=== PATIENT | female | born 1970 | race Caucasian/White ===

== ENCOUNTER 2017-11-02 10:30 | Emergency (ER) | payer MEDICARE, MEDICAID, SELFPAY ==
[2017-11-02 10:31] VITALS: BP 159/91; PULSE 79; RESP 16; TEMP 36.5; O2SAT 99; BMI 45.1
--- NOTE | 2017-11-02 10:57 | ED.DCSUM_ITS ---
- ER Visit Summary Date of Service: 11/02/17 Chief Complaint: Cough and shortness of breath History of Present Illness: The patient is a [address] Corbett. She reports that she has a cough began 4 days ago. It is nonproductive. She denies any fever or chills. She reports that she has a history of asthma and has had severe shortness of breath. She reports that this is worsened by coughing or walking. It is relieved transiently and partially by her albuterol nebulizer which she is using a q3. States that she was last on steroids approximately 1 month ago. She denies any chest pain. Physical Examination: Vitals: Stable. Afebrile. General: Well-nourished and well-developed. Head: Normocephalic atraumatic. Neck: Supple, no lymphadenopathy. No JVD. Nontender. Cardiovascular: Regular rate and rhythm. No murmurs. Respiratory: Mild respiratory distress. Wheezing with severely limited air movement bilaterally. Abdominal: Soft, nontender, nondistended, normal bowel sounds. No guarding, rebound, or peritoneal signs. Back: Nontender. Extremities: Nontender, no edema. Skin: Normal color, no rash. Neurologic: Alert and oriented ?3. Cranial nerves II through XII are intact. Normal strength and sensation. Psych: Normal affect. Test Results: Chest x-ray shows no acute disease. CBC is remarkable for eosinophils of 8. BMP is remarkable for a glucose of 107. Emergency Department Course and Treatment: Patient had an IV placed. She was given Solu-Medrol IV. She was treated with albuterol and Atrovent aerosols. She feels much improved and would like to go home. Treatment Plan: Patient will be discharged with instructions to use her albuterol and Atrovent nebulized at home. She be placed on a steroid taper. Instructed to follow-up with her primary care physician in 1-2 days if not improving. Return to the emergency department for any worsening symptoms. Disposition: To home in improved and stable condition. Impression: 1. Asthma exacerbation. 2. URI. This note was generated with [employer] dictation software. It may contain incorrect words, spelling, and punctuation that were not noted in review of the chart prior to signing ED Disposition - Plan for ED Patient: Chief Complaint: Shortness of Breath Instructions: ED Bronchitis Asthmatic Prescriptions: Prednisone 10 mg PO DAILY #63 tablet Referrals: Aditi Corbett MD [Primary Care Provider] - 1-2 Days if not improving
[2017-11-02 11:00] VITALS: PULSE 91; RESP 48
[2017-11-02] MEDS: Albuterol 2.5 MG/3 ML VIAL.NEB. INHALATION ×2 (11:00)
[2017-11-02] MEDS: Ipratropium/Albuterol Sulfate 3 ML AMPUL.NEB INHALATION (11:00)
[2017-11-02 11:07] VITALS: O2SAT 99
[2017-11-02 11:19] LABS: Absolute Lymphocyte Count 1.65 X10^3/ul (0.83-4.51); Absolute Neutrophil Count 2.8 X10^3/uL (2.0-7.7); Basophil# 0.04 X10^3/uL; Basophil% 0.8 % (0-1); Eosinophil# 0.41 X10^3/uL; Eosinophils% 7.8 % (0-5); Hematocrit 38.5 % (37-47); Hemoglobin 13.2 g/dl (12.0-15.0); Lymphocyte # 1.65 X10^3/ul (4.0); Lymphocyte % 31.3 % (19-41); Mean Corp Hgb Conc 34.3 g/gl (32-36); Mean Corpuscular Hgb 30.3 pg (27.0-32.0); Mean Corpuscular Volume 88.3 fL (81-99); Mean Platelet Vol. 8.7 fl (6.2-12.0); Monocyte# 0.39 X10^3/uL; Monocyte% 7.4 % (0-10); Neutrophil # 2.78 X10^3/uL (2.7-7.7); Neutrophil % 52.5 % (47-70); POSITIVE COUNT NO; POSITIVE DIFFERENTIAL NO; POSITIVE MORPHOLOGY NO; Platelet Count 274 K/mm3 (150-450); RBC Distribution Width CV 13.1 % (11.6-14.6); Red Blood Count 4.36 M/mm3 (4.2-5.4); White Blood Count 5.3 K/mm3 (4.4-11.0)
[2017-11-02] MEDS: MethylPREDNISolone 125 MG/2 ML Vial IV (11:23)
[2017-11-02] MEDS: 0.9% Normal Saline 1,000 ML 999 ML IV (11:23)
--- NOTE | 2017-11-02 11:25 | RAD_ITS ---
STUDY: X-RAY CHEST REASON FOR EXAM: Female, 47 years old. Shortness of breath for 4 days. TECHNIQUE: PA and lateral views of the chest. COMPARISON: Prior comparable comparison studies are not available for review at this time. FINDINGS: Cardiac monitoring leads are present. Lungs are expanded. There is mild interstitial thickening visible in both lungs. There is no demonstrated pleural abnormality. Normal size heart. Normal mediastinum and lexy. Normal visualized pulmonary arteries. There is atherosclerotic tortuosity of the aortic arch and descending thoracic aorta. There is demineralization of the osseous structures. Normal visualized ribs, clavicles, and shoulders. There is no demonstrated abnormality of the visualized soft tissue structures of the upper abdomen. RAD/Chest PA and Lateral IMPRESSION: No radiographic evidence of acute cardiopulmonary disease. Electronically Signed: Diana Khan MD at 12:06 EST , Service support ,
[2017-11-02 11:30] LABS: Anion Gap 9 (5-15); BUN 15 mg/dL (7-18); BUN/Creat Ratio 19.9 RATIO (10-20); Calcium,Total 9.5 mg/dL (8.5-10.1); Chloride 107 mmol/L (98-107); Creatinine, Serum 0.76 mg/dL (0.55-1.02); EST Glomerular Filtration Rate 87 mL/min (>60); Est Glom Filt Rate - Afr Amer 105 mL/min (>60); Estimated Creatinine Clearance 78.17 ml/min; Glucose 107 mg/dL (74-106); Potassium 3.9 mmol/L (3.5-5.1); Sodium Level 142 mmol/L (136-145)
[2017-11-02 12:43] VITALS: BP 157/80; PULSE 98; RESP 20; O2SAT 99
== END 2017-11-02 12:44 | disposition home or self-care (01) ==
PROVIDERS: Emergency Provider Emergency Medicine; Family Provider Internal Medicine; PCP Internal Medicine
DX: J45.901 Unspecified asthma with (acute) exacerbation (principal); J06.9 Acute upper respiratory infection, unspecified; I10 Essential (primary) hypertension; M79.7 Fibromyalgia; Z87.19 Personal history of other diseases of the digestive system; Z90.49 Acquired absence of other specified parts of digestive tract; Z90.710 Acquired absence of both cervix and uterus; Z79.899 Other long term (current) drug therapy
CPT/HCPCS: 71046; 80048; 85025; 94640; 96361; 96374; 99284; J7030; A4216

== ENCOUNTER 2017-11-28 15:00 | Outpatient (RCR) | payer MEDICARE, MEDICAID, SELFPAY ==
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
--- NOTE | 2018-03-17 14:08 | HP.PT.NRP ---
HP - Discharge Summary (1) - Patient Information MIKA VELAZQUEZ was seen in my office for initial evaluation on 11/24/17. The following Plan of Care was established for this patient: Initial Frequency: 2-3x /Week Initial Duration: 4-6 Weeks - Anticipated Interventions Patient/Client Instruction: Educate patient on: Condition, Plan of Care, Risk Factors, Benefits of Fitness Program For the Purpose of:: To improve self management Therapeutic Exercise to Include: Strength training, Body mechanics, Postural training, Flexibilty training, In an aquatic setting, Active ROM, Dynamic Lumbar Stabilization, Scapular Strength/Stabilization For the Purpose of:: To decrease pain, To increase ROM, To improve muscle performance and motor function, To improve ability to perform ADL's, To increase tolerance to activity/condition/position, To improve ability of physical actions for home/community/work/leisure This patient was last seen in our office 11/28/17. Pertinent comments regarding their Physical therapy will appear below: This patient has not returned to Physical Therapy and is appropriate to return to MD for further follow-up as needed. At this point I will be discontinuing this patient from physical therapy. I would be happy to see this patient again in the future if found appropriate by the physician. Thank you! Tania Mullen
== END 2017-11-28 19:00 | disposition home or self-care (01) ==
LOC: PT 15:00
PROVIDERS: Family Provider Internal Medicine; PCP Internal Medicine; Visit Provider Internal Medicine
DX: M54.14 Radiculopathy, thoracic region (principal); M50.30 Other cervical disc degeneration, unspecified cervical region
CPT/HCPCS: 97113; 97162

== ENCOUNTER 2018-02-04 16:21 | Emergency (ER) | payer MEDICARE, MEDICAID, SELFPAY ==
[2018-02-04 16:24] VITALS: BP 177/94; PULSE 79; RESP 16; TEMP 36.6; O2SAT 99; BMI 45.9
--- NOTE | 2018-02-04 17:08 | ED.DCSUM_ITS ---
- ER Visit Summary Date of Service: 02/04/18 Chief Complaint: Rash History of Present Illness: The patient is a [address] Corbett. She reports that 3 days ago she was out working in the yard and they are where a bunch of horse flies around. She worked in bushes that had spiders. She denies any exposure to poison theron. She reports that night she developed a rash to her right leg that itches and rodriguez. She was seen at the walk-in clinic yesterday and placed on doxycycline. She outlined the areas and it seems to have expanded so she is coming emergency department for evaluation today. Physical Examination: Vitals: Stable. Afebrile. General: Well-nourished and well-developed. Head: Normocephalic atraumatic. Neck: Supple, no lymphadenopathy. No JVD. Nontender. Cardiovascular: Regular rate and rhythm. No murmurs. Respiratory: No respiratory distress. Clear to auscultation bilaterally. Abdominal: Soft, nontender, nondistended, normal bowel sounds. No guarding, rebound, or peritoneal signs. Back: Nontender. Extremities: Nontender, no edema. Skin: 3 separate areas of erythema. One is on the distal thigh medially. One is on the anterior mid leg. One is on the medial side of her distal left leg. There is no induration or fluctuance. There is no vesicles.. Neurologic: Alert and oriented ?3. Cranial nerves II through XII are intact. Normal strength and sensation. Psych: Normal affect. Emergency Department Course and Treatment: I had a discussion the patient had a my opinion this is a localized allergic reaction from either a insect bite or something that she came into contact with. She is quite certain that this is cellulitis. Treatment Plan: Patient be discharged instructions to continue her doxycycline. However, for the itching she will be placed on Zyrtec and triamcinolone ointment. Follow-up with her primary care physician in 2 days for a wound check. Disposition: To home in improved and stable condition. Impression: 1. Contact dermatitis left leg. This note was generated with [employer] dictation software. It may contain incorrect words, spelling, and punctuation that were not noted in review of the chart prior to signing ED Disposition - Plan for ED Patient: Disposition: Home or Assisted Living Chief Complaint: Cellulitis Instructions: ED Dermatitis Contact Prescriptions: Cetirizine HCl [Zyrtec] 10 mg PO DAILY #14 tablet Triamcinolone 0.5% Cream [Kenalog] 1 applic TOPICAL BID #1 tube Referrals: Aditi Corbett MD [Primary Care Provider] - 2 Days for wound check
== END 2018-02-04 17:24 | disposition home or self-care (01) ==
LOC: ED 17:19
PROVIDERS: Emergency Provider Emergency Medicine; Family Provider Internal Medicine; PCP Internal Medicine
DX: L23.9 Allergic contact dermatitis, unspecified cause (principal); J45.909 Unspecified asthma, uncomplicated; M79.7 Fibromyalgia; Z79.899 Other long term (current) drug therapy
CPT/HCPCS: 99282

== ENCOUNTER → 2018-04-02 13:36 | Outpatient (CLI) | payer MEDICARE, MEDICAID, SELFPAY ==
[2018-04-02 17:54] LABS: Estradiol < 11.0 pg/mL; Follicle Stimulating Hormone 52.3 mIU/mL
== END ==
PROVIDERS: Family Provider Internal Medicine; PCP Internal Medicine; Visit Provider Obstetrics & Gynecology
DX: N99.83 Residual ovary syndrome (principal)
CPT/HCPCS: 36415; 82670; 83001

== ENCOUNTER → 2018-11-11 15:30 | Outpatient (CLI) | payer MEDICARE, MEDICAID, SELFPAY ==
[2018-04-02 13:00] VITALS: BMI 45.2
== END ==
PROVIDERS: Family Provider Internal Medicine; PCP Internal Medicine; Referring Provider Otolaryngology Otolaryngology/Facial Plastic Surgery; Visit Provider Otolaryngology Otolaryngology/Facial Plastic Surgery
DX: J32.9 Chronic sinusitis, unspecified (principal)
CPT/HCPCS: 87070; 87205

== ENCOUNTER 2019-01-12 00:12 | Emergency (ER) | payer MEDICARE, MEDICAID, SELFPAY ==
[2019-01-12 00:12] VITALS: BP 162/94; PULSE 89; RESP 16; TEMP 36.6; O2SAT 97; BMI 46.7
--- NOTE | 2019-01-12 00:51 | ED.VISSUMM ---
- ER Visit Summary Date of Service: 01/12/19 Chief Complaint: Poison tenisha History of Present Illness: The patient is a 48 F with a rash from poison tenisha for the past 1 week. She was recently started on a prednisone taper. She noted the rash seemed to worsen after going from 40 mg down to 20 mg. She has been on cycles of prednisone as well as a Medrol Dosepak over the past couple of months for asthma. She is also currently taking Benadryl. Physical Examination: Blood pressure is 162/94, otherwise vitals normal. Patient sitting upright in bed no acute distress. Heart is regular rate and rhythm. Lung sounds are clear. Skin examination reveals patches of erythema to the bilateral arms into her right thigh consistent with contact dermatitis. There is no sign of secondary infection at this time. Test Results: [] Emergency Department Course and Treatment: I discussed with patient that exam findings are consistent with contact dermatitis from poison tenisha. We will give her 60 mg of prednisone now and start her on a slow taper. She will also be given Pepcid and will take this in addition to Benadryl. I also recommended trying oatmeal baths or using the powder from the stomach a paste to apply to the areas. Treatment Plan: Patient is to return for worsening symptoms or other concerns. Disposition: Discharge Impression: Contact dermatitis This note was generated with [employer] dictation software. It may contain incorrect words, spelling, and punctuation that were not noted in review of the chart prior to signing ED Disposition - Plan for ED Patient: Disposition: Home or Assisted Living Instructions: ED Dermatitis Poison Tenisha Prescriptions: Famotidine [Pepcid] 40 mg PO DAILY #28 tablet Prednisone 10 mg PO DAILY #63 tablet Referrals: Aditi Corbett MD [Primary Care Provider] - 1 Week
[2019-01-12 00:55] VITALS: BP 158/89; PULSE 92; RESP 18; O2SAT 98
[2019-01-12] MEDS: predniSONE 20 MG Tablet 60 MG PO (01:10)
[2019-01-12] MEDS: Famotidine 20 MG Tablet 40 MG PO (01:10)
== END 2019-01-12 01:14 | disposition home or self-care (01) ==
PROVIDERS: Emergency Provider Emergency Medicine; Family Provider Internal Medicine; PCP Internal Medicine
DX: L23.7 Allergic contact dermatitis due to plants, except food (principal); J45.909 Unspecified asthma, uncomplicated; I10 Essential (primary) hypertension; M79.7 Fibromyalgia; F32.9 Major depressive disorder, single episode, unspecified; G47.33 Obstructive sleep apnea (adult) (pediatric); Z79.52 Long term (current) use of systemic steroids; Z79.51 Long term (current) use of inhaled steroids; Z79.899 Other long term (current) drug therapy
CPT/HCPCS: 99283

== ENCOUNTER → 2019-02-15 | Outpatient (CLI) | payer MEDICARE, MEDICAID, SELFPAY ==
--- NOTE | 2019-02-15 14:15 | CT_ITS ---
STUDY: CT MAXILLOFACIAL SINUSES REASON FOR EXAM: Female, 48 years old. Sinusitis. History of balloon sinus surgery. RADIATION DOSAGE (If Supplied By Facility): CTDIvol = ( 33.45 ) mGy, DLP = ( 793.09 ) mGycm TECHNIQUE: The patient was scanned in a multi detector CT scanner. High resolution axial imaging was performed without the administration of intravenous contrast material. Sagittal and coronal images were reconstructed. Individualized dose optimization techniques were used for this CT. COMPARISON: CT brain dated 08/15/2015. FINDINGS: FRONTAL SINUSES: There are stable non pneumatization of the right frontal sinus. The left frontal sinus is clear. ETHMOIDAL SINUSES: Normal aeration, without mucosal inflammatory disease. MAXILLARY SINUSES: Normal aeration, without mucosal inflammatory disease. SPHENOIDAL SINUSES: Normal aeration, without mucosal inflammatory disease. There is patency of the bilateral maxillary infundibuli with normal uncinate processes, ethmoid bullae, and hiatus semilunaris. Normal bilateral middle turbinates. Normal bilateral inferior turbinates. Normal midline nasal septum. There is patency of the bilateral nasal airways. The visualized osseous structures are normal. The visualized bilateral orbital contents are normal. CT/Sinus/Facial Bone IMPRESSION: Stable non pneumatization of the right frontal sinus. Otherwise, clear sinuses. Electronically Signed: Edenilson Castaneda, at 14:49 EDT Tel , Service support ,
== END | disposition home or self-care (01) ==
LOC: CT 14:13
PROVIDERS: Family Provider Internal Medicine; PCP Internal Medicine; Referring Provider Otolaryngology; Visit Provider Otolaryngology
DX: J32.9 Chronic sinusitis, unspecified (principal)
CPT/HCPCS: 70486

== ENCOUNTER → 2019-03-16 | Outpatient (CLI) | payer MEDICARE, MEDICAID, SELFPAY | END | disposition home or self-care (01) | LOC: LABSPEC 16:18 | PROVIDERS: Family Provider Internal Medicine; PCP Internal Medicine; Referring Provider Otolaryngology Otolaryngology/Facial Plastic Surgery; Visit Provider Otolaryngology Otolaryngology/Facial Plastic Surgery | DX: J02.9 Acute pharyngitis, unspecified (principal) | CPT/HCPCS: 87070 ==

== ENCOUNTER 2019-09-11 21:18 | Emergency (ER) | payer MEDICARE, MEDICAID, SELFPAY ==
[2019-09-11 21:18] VITALS: BP 157/98; PULSE 86; RESP 18; TEMP 36.4; O2SAT 97; BMI 45.8
--- NOTE | 2019-09-11 21:40 | EKG12_ITS ---
Test Reason : CP Blood Pressure : / mmHG Vent. Rate : 082 BPM Atrial Rate : 082 BPM P-R Int : 144 ms QRS Dur : 084 ms QT Int : 396 ms P-R-T Axes : 031 019 029 degrees QTc Int : 462 ms Normal sinus rhythm Nonspecific ST abnormality Abnormal ECG Confirmed by GENARO FORBES, TIFFANIE ([id number]), book editor MARY MARINELLI ([id number]) on 09/14/2019 8:50:00 AM Referred By: ABRIL Confirmed By:TIFFANIE LAM MD
--- NOTE | 2019-09-11 21:44 | RAD_ITS ---
STUDY: X-RAY CHEST REASON FOR EXAM: Female, 48 years old. HTN, TACHYCARDIA, CHEST PRESSURE RADIATING TO RIGHT NECK. TECHNIQUE: Portable chest. COMPARISON: 11/02/2017. FINDINGS: The lungs are clear and expanded. There is no demonstrated pleural abnormality. Normal size heart. Normal mediastinum and lexy. Normal visualized pulmonary arteries. Normal visualized aortic arch and descending thoracic aorta. Normal visualized thoracic spine. Normal visualized ribs, clavicles, and shoulders. There is no demonstrated abnormality of the visualized soft tissue structures of the upper abdomen. RAD/Chest 1 View (Portable) IMPRESSION: Normal x-ray examination of the chest. Electronically Signed: Bev Joshi MD at 22:09 EST Tel , Service support ,
[2019-09-11] MEDS: Aspirin 81 MG TAB.CHEW 324 MG PO (21:47)
[2019-09-11 21:50] LABS: Absolute Lymphocyte Count 2.91 X10^3/uL (0.83-4.51); Absolute Neutrophil Count 2.6 X10^3/uL (2.0-7.7); Basophil# 0.02 X10^3/uL; Basophil% 0.3 % (0-1); Eosinophils% 1.6 % (0-5); Hematocrit 37.6 % (37-47); Hemoglobin 12.5 g/dL (12.0-15.0); Lymphocyte # 2.91 X10^3/ul (4.0); Lymphocyte % 46.6 % (19-41); Mean Corp Hgb Conc 33.2 g/dL (32-36); Mean Corpuscular Hgb 29.6 pg (27.0-32.0); Mean Corpuscular Volume 88.9 fL (81-99); Mean Platelet Vol. 8.8 fl (6.2-12.0); Monocyte# 0.65 X10^3/uL; Monocyte% 10.4 % (0-10); NRBC Flagged by Analyzer 0 % (0-5); Neutrophil # 2.56 X10^3/uL (2.7-7.7); Neutrophil % 40.9 % (47-70); Platelet Count 246 K/mm3 (150-450); RBC Distribution Width SD 41.8 fl (35.1-43.9); Red Blood Count 4.23 M/mm3 (4.2-5.4); White Blood Count 6.3 K/mm3 (4.4-11.0)
[2019-09-11 22:32] LABS: Anion Gap 3 (5-15); BUN 15 mg/dL (7-18); Calcium,Total 9.5 mg/dL (8.5-10.1); Chloride 110 mmol/L (98-107); Creatinine, Serum 0.88 mg/dL (0.55-1.02); EST Glomerular Filtration Rate 72 mL/min (>60); Est Glom Filt Rate - Afr Amer 88 mL/min (>60); Estimated Creatinine Clearance 66.78 ml/min; Glucose 120 mg/dL (74-106); Potassium 3.6 mmol/L (3.5-5.1); Sodium Level 141 mmol/L (136-145)
--- NOTE | 2019-09-11 22:35 | ED.VISSUMM ---
- ER Visit Summary Date of Service: 09/11/19 Chief Complaint: Chest discomfort History of Present Illness: The patient is a 48 F history of fibromyalgia, hypertension, arthritis, lupus, asthma. Patient is never had a DVT or PE. She denies any recent travel surgery or immobilization. States that she has had both a negative stress test and negative heart cath within the last 2 years. She had a heart cath at one of the local [facility] sites. States that she has had intermittent atypical chest pain for last 3 days. Not specifically associated with exertion. No leg pain or swelling. No hemoptysis. It is not pleuritic. Currently she is symptom-free. Physical Examination: White female no acute distress. Vital signs are stable and afebrile. Pulse ox 97% on room air no signs hypoxia. HEENT exam unremarkable. Neck nontender no lymphadenopathy. No JVD. Lungs clear to auscultation bilaterally. Heart regular rate and rhythm no murmur. Chest wall nontender. Abdomen soft nontender. Normal bowel sounds no peritoneal signs. Extremities moves all 4. Neurovascular intact. Equal symmetrical radial pulses. Calves are nontender without edema or cords. Neurologically she is awake alert with no focal motor deficits. Back nontender. Test Results: EKG normal sinus rhythm rate 82 with no acute signs of IA or ischemia. Portable chest x-ray one view read both myself and the radiologist showed no acute abnormality. Normal cardiac silhouette mediastinum. CBC normal white count of 6 hemoglobin 12. Chemistries unremarkable normal creatinine and gap. Troponin normal. Emergency Department Course and Treatment: Patient with atypical chest pain clinically this does not sound cardiac. Has had a negative stress test and cardiac catheterization within the last 1 to 2 years. Her cardiac work-up is completely negative and unremarkable. On repeat exam at 2234 she is doing well. She is symptom-free. She and I went over all of her test results. She will be discharged home. Treatment Plan: Follow-up with primary care physician. Return if worse. Disposition: Discharge Impression: Chest pain of uncertain etiology This note was generated with [employer] dictation software. It may contain incorrect words, spelling, and punctuation that were not noted in review of the chart prior to signing ED Disposition - Plan for ED Patient: Referrals: Aditi Corbett MD [Primary Care Provider] -
--- NOTE | 2019-09-11 22:38 | ED.DEP ---
ED Disposition - Plan for ED Patient: Disposition: Home or Assisted Living Instructions: CHEST PAIN, Uncertain Cause Referrals: Aditi Corbett MD [Primary Care Provider] - As Needed Additional Instructions: Return if feeling worse. Otherwise follow-up with her primary care physician. Motrin for pain.
[2019-09-11 22:43] VITALS: BP 132/67; PULSE 85; RESP 16; O2SAT 96
== END 2019-09-11 22:44 | disposition home or self-care (01) ==
PROVIDERS: Emergency Provider Emergency Medicine; Family Provider Internal Medicine; PCP Internal Medicine
DX: R07.89 Other chest pain (principal); M79.7 Fibromyalgia; I10 Essential (primary) hypertension; J45.909 Unspecified asthma, uncomplicated; M19.90 Unspecified osteoarthritis, unspecified site; Z79.899 Other long term (current) drug therapy
CPT/HCPCS: 71045; 80048; 84484; 85025; 93005; 99284; A4216

== ENCOUNTER 2019-10-01 15:01 | Emergency (ER) | payer MEDICARE, MEDICAID, SELFPAY ==
[2019-10-01 15:02] VITALS: BP 161/101; PULSE 105; RESP 19; TEMP 38; O2SAT 96; BMI 45.2
--- NOTE | 2019-10-01 15:55 | ED.DCSUM_ITS ---
History of Present Illness Chief Complaint: Shortness of Breath Informant: Patient Onset: Yesterday Narrative: Fever, myalgias, nonproductive cough since yesterday. States started not feeling well 3 days ago. History of asthma, wheezing. Inhaler is helping. History of lupus on Plaquenil. Reports did get the flu vaccination this year. No vomiting or diarrhea. No urinary symptoms. Sick contacts with similar symptoms. Prior similar symptoms: No Past Medical History - Allergies and Home Meds Allergies/Adverse Reactions: Allergies cefuroxime axetil [From Ceftin] Allergy (Verified 10/01/19 15:02) Hives furosemide [From Lasix] Allergy (Verified 10/01/19 15:02) Other FLANK PAIN, PAIN IN LEG, NAUSEA hydralazine Allergy (Verified 10/01/19 15:02) Angioedema latex Allergy (Verified 10/01/19 15:02) Hives oxycodone HCl [From Percocet] Adverse Reaction (Verified 10/01/19 15:02) Nausea propoxyphene napsylate [From Darvocet-N] Adverse Reaction (Verified 10/01/19 15:02) Other Hallucinations Primary Care Physician: Aditi Corbett MD [Primary Care Provider] - Past Medical History: - - Asthma, lupus, fibromyalgia Surgical History: noncontributory Smoking Status: Never smoker - Family History Maternal Family History: Family History (Last Reviewed 04/02/18 @ 13:01 by Heather Ross) Mother Diabetes Hypertension Father Diabetes CVA (cerebral vascular accident) Hypertension Aunt Liver cancer Grandmother Colon cancer Uncle Throat cancer Sister Thyroid cancer Family History: Reports: - - dm cancer Paternal Family History: Family History (Last Reviewed 04/02/18 @ 13:01 by Heather Ross) Mother Diabetes Hypertension Father Diabetes CVA (cerebral vascular accident) Hypertension Aunt Liver cancer Grandmother Colon cancer Uncle Throat cancer Sister Thyroid cancer Family History: Reports: - - stroke heartdisease dm Review of Systems All systems negative except as indicated General: Reports: Fever. Denies: Chills, Sweats Eyes: Denies: Visual changes - bilaterally, Diplopia ENT: Denies: Rhinorrhea, Sore throat Cardiovascular: Denies: Chest pain, Palpitations Respiratory: Reports: Cough. Denies: Dyspnea, Dyspnea on exertion Gastrointestinal: Denies: Abdominal pain, Nausea, Vomiting, Diarrhea, Melena, Hematochezia Genitourinary: Denies: Dysuria, Hematuria, Frequency Musculoskeletal: Reports: Myalgias. Denies: Back pain, Extremity Pain Skin: Denies: Rash, Wounds Neurological: Denies: Headache, Weakness, Numbness Physical Exam Vital Signs/Narrative: Vital Signs Temp Pulse Resp BP Pulse Ox 10/01/19 15:02 100.4 F H 105 H 19 H 161/101 H 96 Inital Vital Signs reviewed: Yes General: Well nourished, Well developed, No Acute Distress Head: Normocephalic, Atraumatic Eyes: Perrl, EOMI ENT: Moist mucous membranes, No rhinorrhea, TM's clear Neck: Supple, Nontender Cardiovascular: Regular rate, Regular rhythm, No murmurs, Tachycardia, - - Heart rate 105 Respiratory: No distress, Chest nontender, - - Minimal coarse sounds at bases bilaterally, no rales, no respiratory distress. Abdomen: Soft, Nontender, Nondistended, Normal bowel sounds Back: Nontender, Normal Inspection Extremities: Nontender, No edema Skin: Normal color, No rash Neurological: Alert, Oriented x3, Cranial nerves II-XII grossly intact, Normal Strength, Normal Sensation Psychological: Normal affect, Normal Mood Diagnostic/Tx/Re-eval - Medical Decision Making Patient low-grade fever on arrival, not hypoxic. Patient in no respiratory distress. Patient presented with influenza-like symptoms along with upper respiratory symptoms. History of asthma. Primary symptoms last 24 hours. Discussed with her asthma history, recommendations would be to treat for influenza with patient inside the window. In addition patient is on Plaquenil for her lupus and immunosuppressed. Discussed coverage with antibiotics. Zithromax, Tamiflu started. Also started on prednisone and given Tylenol. Discussed continue oral hydration. Prescription for Zofran to use potential side effects of nausea and vomiting with Tamiflu. Strict signs symptoms discussed return. All questions were answered. ED Disposition - Plan for ED Patient: Disposition: Home or Assisted Living Diagnosis: Influenza-like symptoms, Acute bronchitis, History of systemic lupus erythematosus Instructions: BRONCHITIS, Antiobiotic Treatment (Adult), ASTHMA, Acute (Adult), Influenza Prescriptions: predniSONE tablet 60 mg PO DAILY #12 tab Transmission Status: Pending to [facility] Oseltamivir Phosphate [Tamiflu] 75 mg PO BID #9 cap Transmission Status: Pending to [facility] Azithromycin [Zithromax] 250 mg PO DAILY #4 tab Transmission Status: Pending to [facility] Ondansetron [Zofran Odt] 4 mg PO Q8H PRN PRN #10 tab PRN Reason: Nausea Transmission Status: Pending to [facility] Referrals: Aditi Corbett MD [Primary Care Provider] - 3-5 Days
[2019-10-01] MEDS: Azithromycin 250 MG Tablet 500 MG PO (16:04)
[2019-10-01] MEDS: predniSONE 20 MG Tablet 60 MG PO (16:04)
[2019-10-01] MEDS: Oseltamivir Phosphate 75 MG Capsule PO (16:04)
[2019-10-01] MEDS: Acetaminophen 500 MG Tablet 1000 MG PO (16:04)
[2019-10-01 16:06] VITALS: RESP 18; O2SAT 96
[2019-10-01 16:43] VITALS: RESP 20
== END 2019-10-01 16:46 | disposition home or self-care (01) ==
LOC: ED 16:18
PROVIDERS: Emergency Provider Emergency Medicine; PCP Internal Medicine
DX: J20.9 Acute bronchitis, unspecified (principal); M32.9 Systemic lupus erythematosus, unspecified; J45.909 Unspecified asthma, uncomplicated; M79.7 Fibromyalgia; Z79.899 Other long term (current) drug therapy
CPT/HCPCS: 94760; 99282

== ENCOUNTER 2020-06-14 00:11 | Emergency (ER) | payer MEDICARE, MEDICAID, SELFPAY ==
[2020-06-14 00:13] VITALS: BP 170/94; PULSE 117; RESP 16; TEMP 36.3; O2SAT 98; BMI 48.4
[2020-06-14 00:16] VITALS: BP 187/137; PULSE 119; RESP 20; TEMP 36.3; O2SAT 99
--- NOTE | 2020-06-14 00:28 | EKG12_ITS ---
Test Reason : CP Blood Pressure : / mmHG Vent. Rate : 115 BPM Atrial Rate : 115 BPM P-R Int : 130 ms QRS Dur : 082 ms QT Int : 328 ms P-R-T Axes : 039 041 025 degrees QTc Int : 453 ms Sinus tachycardia Nonspecific ST and T wave abnormality Abnormal ECG Confirmed by GENARO FORBES, TIFFANIE ([id number]), story editor MARY MARINELLI ([id number]) on 06/14/2020 9:30:41 AM Referred By: JAYDE Confirmed By:TIFFANIE LAM MD
--- NOTE | 2020-06-14 00:28 | RAD_ITS ---
STUDY: X-RAY CHEST REASON FOR EXAM: Female, 49 years old. Chest pain and shortness of breath. TECHNIQUE: AP portable chest. COMPARISON: September 11, 2019. FINDINGS: The lungs are clear and expanded. There is no demonstrated pleural abnormality. Normal size heart. Normal mediastinum and lexy. Normal visualized pulmonary arteries. Normal visualized aortic arch and descending thoracic aorta. Normal visualized thoracic spine. Normal visualized ribs, clavicles, and shoulders. There is no demonstrated abnormality of the visualized soft tissue structures of the upper abdomen. RAD/Chest 1 View (Portable) IMPRESSION: Normal x-ray examination of the chest. Electronically Signed: Luciano Buchanan MD at 2:40 EDT , Service support ,
--- NOTE | 2020-06-14 00:30 | ED.DCSUM_ITS ---
History of Present Illness Chief Complaint: Chest Pain Informant: Patient Onset: Days Narrative: Patient presents secondary to asthma symptoms along with vomiting and diarrhea. She states for the past 2 days she is had lung tightness consistent with asthma. She is been using her inhalers more than normal. She has had some chills as well. Tonight she ate a salad and within 2 hours had vomiting and diarrhea. She states she had similar symptoms last week after eating the same salad. She did take Zofran at home but states she does not believe it stayed down long enough to be effective. She states that after vomiting rather harshly she had increased burning in her lungs and is concerned that she aspirated. - Past Medical History (1) Asthma Status: Chronic (2) Benign hypertension Status: Chronic (3) Depression Status: Chronic (4) Fibromyalgia Status: Chronic (5) Hyperlipidemia Status: Chronic (6) Lupus Status: Chronic Past Medical History - Allergies and Home Meds Allergies/Adverse Reactions: Allergies cefuroxime axetil [From Ceftin] Allergy (Verified 06/14/20 00:12) Hives furosemide [From Lasix] Allergy (Verified 06/14/20 00:12) Other FLANK PAIN, PAIN IN LEG, NAUSEA hydralazine Allergy (Verified 06/14/20 00:12) Angioedema latex Allergy (Verified 06/14/20 00:12) Hives oxycodone HCl [From Percocet] Adverse Reaction (Verified 06/14/20 00:12) Nausea propoxyphene napsylate [From Darvocet-N] Adverse Reaction (Verified 06/14/20 00:12) Other Hallucinations Primary Care Physician: Aditi Corbett MD [Primary Care Provider] - Prior records reviewed: Yes Surgical History: noncontributory Smoking Status: Never smoker - Family History Maternal Family History: Family History (Last Reviewed 04/02/18 @ 13:01 by Heather Ross) Mother Diabetes Hypertension Father Diabetes CVA (cerebral vascular accident) Hypertension Aunt Liver cancer Grandmother Colon cancer Uncle Throat cancer Sister Thyroid cancer Family History: Reports: - - dm cancer Paternal Family History: Family History (Last Reviewed 04/02/18 @ 13:01 by Heather Ross) Mother Diabetes Hypertension Father Diabetes CVA (cerebral vascular accident) Hypertension Aunt Liver cancer Grandmother Colon cancer Uncle Throat cancer Sister Thyroid cancer Family History: Reports: - - stroke heartdisease dm Review of Systems General: Reports: Chills. Denies: Fever Eyes: Denies: Visual changes - bilaterally ENT: Denies: Bilateral ear pain Cardiovascular: Reports: Chest pain - Burning sensation in chest Respiratory: Reports: Dyspnea Gastrointestinal: Reports: Nausea, Vomiting, Diarrhea Genitourinary: Denies: Dysuria Musculoskeletal: Denies: Swelling, Extremity Pain Skin: Denies: Rash Neurological: Denies: Headache Hematologic: Denies: Easy bruising, Easy bleeding Allergy: Denies: Uticaria Physical Exam Vital Signs/Narrative: Vital Signs Temp Pulse Resp BP Pulse Ox 06/14/20 00:16 97.4 F L 119 H 20 H 187/137 H 99 06/14/20 00:13 97.4 F L 117 H 16 170/94 H 98 Inital Vital Signs reviewed: Yes Head: Normocephalic, Atraumatic ENT: Moist mucous membranes Neck: Supple Cardiovascular: Tachycardia Respiratory: No distress, CTA bilaterally Abdomen: Soft, Nontender Extremities: Nontender Skin: Normal color Neurological: Alert, Oriented x3 Psychological: Normal affect Diagnostic/Tx/Re-eval Impressions Chest X-Ray 06/14/20 00:28 IMPRESSION: Normal x-ray examination of the chest. Electronically Signed: Luciano Buchanan MD at 2:40 EDT , Service support , 06/14/20 00:28 Chest 1 View (Portable) [RAD] Stat Laboratory Results 06/14/20 06/14/20 02:07 02:07 WBC 17.0 H RBC 4.63 Hgb 13.6 Hct 41.5 MCV 89.6 MCH 29.4 MCHC 32.8 RDW Std Deviation 41.9 RDW Coeff of Monika 12.8 Plt Count 252 MPV 8.8 Immature Gran % (Auto) 0.400 Neut % (Auto) 87.3 H Lymph % (Auto) 5.5 L [place] % (Auto) 6.2 Eos % (Auto) 0.4 Baso % (Auto) 0.2 Absolute Neuts (auto) 14.8 H Absolute Lymphs (auto) 0.93 Nucleated RBC % 0 Sodium 141 Potassium 3.8 Chloride 111 H Carbon Dioxide 22.0 Anion Gap 8 BUN 18 Creatinine 0.89 Estim Creat Clear Calc 65.30 Est GFR (MDRD) Af Amer 86 Est GFR (MDRD) Non-Af 71 BUN/Creatinine Ratio 20.2 H Glucose 141 H Calcium 9.4 Troponin I < 0.015 - EKG Initial EKG Interpretation: Sinus Tachycardia - Sinus tach at 115. No acute ischemia. - Medical Decision Making Patient was given Solu-Medrol and Zofran on arrival. On repeat evaluation she is resting comfortably. She states the burning in her lungs is significantly improved and her nausea is controlled. I do believe patient likely aspirated tonight she will be covered with Doxycycline. She will also be given prescription for Zofran as well as prednisone at home. Vital signs are stable on room air and she is speaking in full sentences without difficulty. ED Disposition - Plan for ED Patient: Disposition: Home or Assisted Living Diagnosis: Viral URI, Asthma exacerbation, Vomiting, Aspiration into airway Instructions: ED URI Viral, ED Nausea Vomiting Adult Prescriptions: Prednisone [Deltasone] 40 mg PO DAILY #10 tab Transmission Status: Pending to [facility] Doxycycline 100 mg PO BID #20 cap Transmission Status: Pending to [facility] Ondansetron [Zofran Odt] 4 mg PO Q8H PRN PRN #10 tab PRN Reason: Nausea Transmission Status: Pending to [facility] Referrals: Aditi Corbett MD [Primary Care Provider] - 3-5 Days if not improving
--- NOTE | 2020-06-14 00:31 | ED.RN ---
CALLED FOR EKG PER RN REQUEST, PULLED OLD EKGS FOR
[2020-06-14] MEDS: Ondansetron 4 MG/2 ML Vial IV (00:41)
[2020-06-14] MEDS: MethylPREDNISolone 125 MG/2 ML Vial IV (00:41)
[2020-06-14 01:54] VITALS: BP 185/99; PULSE 95; RESP 15; TEMP 36.6; O2SAT 95
[2020-06-14 02:17] LABS: Absolute Lymphocyte Count 0.93 X10^3/uL (0.83-4.51); Absolute Neutrophil Count 14.8 X10^3/uL (2.0-7.7); Basophil# 0.04 X10^3/uL; Basophil% 0.2 % (0-1); Eosinophil# 0.07 X10^3/uL; Eosinophils% 0.4 % (0-5); Hematocrit 41.5 % (37-47); Hemoglobin 13.6 g/dL (12.0-15.0); Lymphocyte # 0.93 X10^3/ul (4.0); Lymphocyte % 5.5 % (19-41); Mean Corp Hgb Conc 32.8 g/dL (32-36); Mean Corpuscular Hgb 29.4 pg (27.0-32.0); Mean Corpuscular Volume 89.6 fL (81-99); Mean Platelet Vol. 8.8 fl (6.2-12.0); Monocyte# 1.06 X10^3/uL; Monocyte% 6.2 % (0-10); NRBC Flagged by Analyzer 0 % (0-5); Neutrophil # 14.83 X10^3/uL (2.7-7.7); Neutrophil % 87.3 % (47-70); Platelet Count 252 K/mm3 (150-450); RBC Distribution Width CV 12.8 % (11.6-14.6); RBC Distribution Width SD 41.9 fl (35.1-43.9); Red Blood Count 4.63 M/mm3 (4.2-5.4)
[2020-06-14 02:37] LABS: Anion Gap 8 (5-15); BUN 18 mg/dL (7-18); BUN/Creat Ratio 20.2 RATIO (10-20); Calcium,Total 9.4 mg/dL (8.5-10.1); Chloride 111 mmol/L (98-107); Creatinine, Serum 0.89 mg/dL (0.55-1.02); EST Glomerular Filtration Rate 71 mL/min (>60); Est Glom Filt Rate - Afr Amer 86 mL/min (>60); Glucose 141 mg/dL (74-106); Potassium 3.8 mmol/L (3.5-5.1); Sodium Level 141 mmol/L (136-145)
[2020-06-14 03:27] VITALS: BP 133/70; PULSE 94; RESP 20; O2SAT 96
== END 2020-06-14 03:28 | disposition home or self-care (01) ==
PROVIDERS: Emergency Provider Emergency Medicine; PCP Internal Medicine
DX: J06.9 Acute upper respiratory infection, unspecified (principal); J45.901 Unspecified asthma with (acute) exacerbation; R11.10 Vomiting, unspecified; T17.920A Food in respiratory tract, part unspecified causing asphyxiation, initial encounter; X58.XXXA Exposure to other specified factors, initial encounter; Y93.9 Activity, unspecified; Y92.9 Unspecified place or not applicable; I10 Essential (primary) hypertension; F32.9 Major depressive disorder, single episode, unspecified; M79.7 Fibromyalgia; E78.5 Hyperlipidemia, unspecified; Z79.899 Other long term (current) drug therapy
CPT/HCPCS: 71045; 80048; 84484; 85025; 93005; 96374; 96375; 99285; J7030; A4216; J2405

== ENCOUNTER → 2024-11-19 | Outpatient (CLI) | payer MEDICARE, MEDICAID, SELFPAY ==
[2024-11-22 17:07] LABS: Calprotectin, Stool 49 ug/g (0-120)
== END | disposition home or self-care (01) ==
LOC: LABSPEC 10:17
PROVIDERS: PCP Internal Medicine; Referring Provider Student in an Organized Health Care Education/Training Program; Visit Provider Student in an Organized Health Care Education/Training Program
DX: R19.5 Other fecal abnormalities (principal); K58.9 Irritable bowel syndrome, unspecified
CPT/HCPCS: 83993; 87493

== ENCOUNTER 2024-12-28 19:26 | Emergency (ER) | payer MEDICARE, MEDICAID, SELFPAY ==
[2024-12-28 19:28] VITALS: BP 161/92; PULSE 95; RESP 16; TEMP 36.4; O2SAT 97; BMI 50.8
--- NOTE | 2024-12-28 20:17 | CT_ITS ---
PROCEDURE: ABDOMEN/PELVIS W IV CONT ONLY 12/28/2024 REASON FOR EXAM: DIVERTICULITIS TECHNIQUE: Abdomen and pelvis CT with intravenous contrast. Coronal and Sagittal reconstruction series were provided. One or more dose reduction techniques were used (e.g., Automated exposure control, adjustment of the mA and/or kV according to patient size, use of iterative reconstruction technique. COMPARISON: None FINDINGS: Lung bases are clear. Hepatic steatosis. Spleen, pancreas and adrenal glands are intact. Gallbladder is not visualized. No significant biliary ductal dilation. Kidneys enhance symmetrically. No suspicious renal mass, calculi or hydronephrosis. Urinary bladder is intact. No bowel obstruction, focal bowel wall thickening or significant perienteric inflammation. Normal appendix. No pelvic free fluid. No free air. No abdominal aortic aneurysm or suspicious adenopathy. Small bilobed fat containing ventral hernia just right of midline. No acute osseous abnormality. CT/Abdomen/Pelvis W IV Cont ONLY IMPRESSION: 1. No acute process. 2. Hepatic steatosis. 3. Fat containing ventral hernia. Reading Location: [facility]
--- NOTE | 2024-12-28 20:18 | ED.VIS.GI ---
HPI HPI - GI History of Present Illness Chief Complaint: GI Bleed Informant: patient Narrative Narrative: 54-year-old female presenting to the emergency room with blood and mucus in stool. Patient states over the past day discomfort in the lower abdomen pressure which she thought perhaps was related to a developing UTI. Patient states that she has had a couple episodes of significant lower discomfort that made her have vasovagal reaction. Today she developed significant discomfort and went to the bathroom. She states that she had a very mucousy stool as well as some small clots and bright red blood. She denies any rectal pain. She denies history of diverticulitis or colitis. She follows with Dr. Huston for upper GI symptoms. No reported fever. [facility] Medical History (Updated 12/28/24 @ 21:[address] Nura Woody, ) Ovarian remnant syndrome Ventral hernia Lupus Medical History no medical history Home Medications ?Medication ?Instructions ?Recorded ?Last Taken ?Type albuterol sulfate 2.5 mg/3 mL 2.5 mg inhalation Q4H PRN PRN 12/31/13 04/01/16 History (0.083 %) solution for nebulization Shortness Of Breath albuterol sulfate 90 mcg/actuation 2 puff inhalation Q4H PRN PRN 12/31/13 04/02/16 History aerosol inhaler Shortness Of Breath fluticasone propionate 230 2 puff inhalation BID 12/31/13 04/02/16 History mcg-salmeterol 21 mcg/actuation HFA inhaler hydroxychloroquine 200 mg tablet 200 mg PO BID 12/31/13 04/02/16 History torsemide 20 mg tablet 20 mg PO DAILY PRN PRN Swelling 05/10/14 03/31/16 History metoprolol succinate 100 mg 50 mg PO BID 08/16/15 04/01/16 History tablet,extended release 24 hr potassium chloride 20 mEq 20 meq PO DAILY PRN MEDICATION 09/29/15 03/31/16 History tablet,extended release(part/cryst) triamcinolone acetonide 0.1 % 1 applic topical BID PRN Itching 01/22/17 Unknown History topical cream hydrocodone-acetaminophen 5-325mg 1 tab PO Q6H PRN PRN Pain #10 tabs 09/23/17 Unknown Rx 5mg-325mg cetirizine 10 mg tablet 10 mg PO DAILY #14 tabs 02/04/18 Unknown Rx omeprazole 20 mg capsule,delayed 20 mg PO DAILY 09/11/19 Unknown History release bupropion HCl 300 mg 24 hr tablet, 300 mg PO DAILY 06/14/20 Unknown History extended release ipratropium 0.5 mg-albuterol 3 mg 3 ml inhalation BID 06/14/20 Unknown History (2.5 mg base)/3 mL nebulization soln ondansetron 4 mg disintegrating 4 mg PO Q8H PRN PRN Nausea #10 tabs 06/14/20 Unknown Rx tablet famotidine 20 mg tablet 20 mg PO QDAY #30 tabs 11/17/24 Unknown Rx losartan 25 mg tablet (Cozaar) 25 mg PO QDAY 11/17/24 Unknown History omeprazole 40 mg capsule,delayed 40 mg PO QDAY #60 caps 11/17/24 Unknown Rx release Allergy/AdvReac Type Severity Reaction Status Date / Time cefuroxime axetil (From Allergy Hives Verified 12/28/24 19:30 Ceftin) furosemide (From Lasix) Allergy Other Verified 12/28/24 19:30 hydralazine Allergy Angioedema Verified 12/28/24 19:30 latex Allergy Hives Verified 12/28/24 19:30 oxycodone HCl (From Percocet) AdvReac Nausea Verified 12/28/24 19:30 propoxyphene napsylate (From AdvReac Other Verified 12/28/24 19:30 Darvocet-N) Family History Mother Diabetes Hypertension Father Diabetes CVA (cerebral vascular accident) Hypertension Aunt Liver cancer Grandmother Colon cancer Uncle Throat cancer Sister Thyroid cancer Family History no significant family his Surgical History H/O oophorectomy S/P cholecystectomy H/O total hysterectomy S/P foot surgery, left Surgical History no surgical history Social History Smoking Status: Never smoker alcohol intake: never substance use type: does not use caffeine: No what type of physical activity do you participate in: none seatbelt use: always do you feel safe at home: Yes additional social history: - Not employed- Disabled ROS ROS ED Constitutional Constitutional ED: Reports sweats; Denies chills, fever(s) or weight loss Eyes Eyes: Denies change in vision or diplopia ENT ENT ED: Denies ear pain, rhinorrhea or sore throat Cardiovascular Cardiovascular: Denies chest pain, orthopnea, palpitations or racing heartbeat Respiratory/Chest Respiratory/Chest: Denies cough, dyspnea or orthopnea Gastrointestinal Gastrointestinal: Reports abdominal pain and other Details: Bright red blood per rectum ; Denies diarrhea, nausea or vomiting Genitourinary Genitourinary ED: Denies dysuria, hematuria or urinary frequency Musculoskeletal Musculoskeletal: Denies arthralgias or myalgias Integumentary Denies abscess or rash Neurologic Neurologic: Denies headache(s) or weakness Psychiatric Psychiatric: Denies anxiety, depression, suicidal ideation or suicidal thoughts Endocrine Endocrinology: Denies polydipsia, polyphagia or polyuria Allergic/Immunologic Allergic/Immunologic ED: Denies mouth swelling, tongue swelling or urticaria EXAM Physical Exam Const Vital Signs: 12/28/24 19:28 12/28/24 21:26 12/28/24 21:51 Temperature 97.6 F L 97 F L Temperature Source Temporal Pulse Rate 95 81 81 Respiratory Rate 16 15 15 Blood Pressure 161/92 H 152/71 H 152/71 H Blood Pressure Mean 115 98 98 Pulse Ox 97 97 97 Oxygen Delivery Method Room Air Room Air Positive well nourished, well developed and obese General Appearance ED: well developed and NAD Nutritional Appearance: obese HEENT Reports normocephalic, head/scalp atraumatic and moist mucous membranes Eyes PERRL and EOMs intact bilaterally Neck no lymphadenopathy, supple and no JVD Resp normal respiratory effort and clear to auscultation bilaterally Cardio regular rate, regular rhythm and no murmurs GI Inspection: Negative for abdominal distention Auscultation: normoactive bowel sounds Palpation: soft and tender LLQ and suprapubic; Negative for guarding or rebound tenderness present Back/Spine no CVA tenderness and normal ROM Extremity normal to inspection General Extremety ED: Negative for edema General Extremity: Negative for edema Neuro oriented x3 and CN's II-XII intact bilaterally Sensorium / Orientation: alert Motor Exam: strength 5/5 throughout Psych mental status grossly normal Mood & Affect: Negative for depressed or tearful Skin no rashes or lesions noted and no wounds MDM MDM MDM Narrative Medical decision making narrative: Differential diagnosis includes but not limited to colitis diverticulitis diverticular abscess UTI kidney stone anemia Basic blood work was obtained shows a glucose of 163 normal white count 7 hemoglobin 11.8. Urinalysis shows no overt infection. CT of abdomen pelvis was obtained which does not demonstrate any acute inflammatory process. Patient has had no further bleeding. I think it is very reasonable to the patient be discharged home. She is to call gastroenterology tomorrow as she has an upcoming endoscopy. Patient understands return instructions including but not limited to fever worsening bleeding pain History & Record Review Discussion w/independent historian: Patient Lab Data Attestation: I reviewed the patient's lab results. Labs: Laboratory Results - last 24 hr 12/28/24 12/28/24 20:01 20:27 WBC 7.0 RBC 3.93 L Hgb 11.8 L Hct 34.9 L MCV 88.8 MCH 30.0 MCHC 33.8 RDW Std Deviation 41.8 RDW Coeff of Monika 12.8 Plt Count 196 MPV 8.9 Immature Gran % (Auto) 0.300 Neut % (Auto) 53.1 Lymph % (Auto) 33.4 [place] % (Auto) 11.6 H Eos % (Auto) 1.0 Baso % (Auto) 0.6 Absolute Neuts (auto) 3.7 Absolute Lymphs (auto) 2.34 Nucleated RBC % 0 Sodium 141 Potassium 3.8 Chloride 105 Carbon Dioxide 24.3 Anion Gap 12 BUN 10 Creatinine 0.82 Estim Creat Clear Calc 105.84 Est GFR (MDRD) Non-Af 84 BUN/Creatinine Ratio 12.6 Glucose 163 H Calcium 9.7 Urine Color Yellow Urine Clarity Clear Urine pH 6.0 Ur Specific [place] 1.020 Urine Protein 15 H Urine Glucose (UA) Normal Urine Ketones Negative Urine Occult Blood Negative Urine Nitrite Negative Urine Bilirubin Negative Urine Urobilinogen Normal Ur Leukocyte Esterase Negative Urine RBC 0 SEEN Urine WBC 0-5 SEEN Ur Squamous Epith Cells 0-5 SEEN Amorphous Sediment 1+ Urine Bacteria 2+ Urine Mucus 1+ Radiography Diagnostic Testing: Clinical Impression(s) from Imaging Studies Abdomen/Pelvis CT 12/28/24 20:17 IMPRESSION: 1. No acute process. 2. Hepatic steatosis. 3. Fat containing ventral hernia. Reading Location: [facility] Discharge Plan Triage Chief Complaint: GI Bleed ED Provider: Nura Woody Dx/Rx/DC Orders Clinical Impression: Acute lower gastrointestinal bleeding, Abdominal pain Instructions: ED Lower GI Bleeding (Stable) Prescriptions: No Action losartan [Cozaar] 25 mg tablet 25 mg PO QDAY omeprazole 40 mg capsule,delayed release(DR/EC) 40 mg PO QDAY Qty: 60 2RF famotidine 20 mg tablet 20 mg PO QDAY Qty: 30 2RF albuterol sulfate 2.5 MG/3 ML solution for nebulization 2.5 mg INHALATION Q4H PRN PRN (Reason: Shortness Of Breath) Patient Comments: FOR BREATHING hydroxychloroquine 200 MG tablet 200 mg PO BID albuterol sulfate 1 INHALER inhaler 2 puff INHALATION Q4H PRN PRN (Reason: Shortness Of Breath) Patient Comments: FOR BREATHING fluticasone propion-salmeterol 1 PUFF inhaler 2 puff INHALATION BID Patient Comments: FOR BREATHING torsemide 20 MG tablet 20 mg PO DAILY PRN PRN (Reason: Swelling) Patient Comments: WATER PILL metoprolol succinate 100 MG tablet 50 mg PO BID Patient Comments: blood potassium chloride 20 MEQ tablet,ER particles/crystals 20 meq PO DAILY PRN (Reason: MEDICATION) Patient Comments: triamcinolone acetonide 1 APPLIC cream 1 applic TOPICAL BID PRN (Reason: Itching) hydrocodone-acetaminophen 1 TABLET tablet 1 tab PO Q6H PRN PRN (Reason: Pain) Qty: 10 0RF cetirizine 10 MG tablet 10 mg PO DAILY Qty: 14 0RF omeprazole 20 MG capsule,delayed release(DR/EC) 20 mg PO DAILY ipratropium-albuterol 3 ML solution for nebulization 3 ml inhalation BID bupropion HCl 300 MG tablet extended release 24 hr 300 mg PO DAILY ondansetron 4 MG tablet 4 mg PO Q8H PRN PRN (Reason: Nausea) Qty: 10 0RF Primary Care Provider: Aidti Corbett Referrals: [email or web address] [Other] Aditi Corbett MD [Primary Care Provider] - Friend,DO Dudley [Med Staff - Active Staff] - (call in am to advise of ED visit ) Print Language: Kyrgyz Disposition Disposition: Home, Self Care Discharge Date/Time: 12/28/24 21:55
[2024-12-28 20:35] LABS: Absolute Lymphocyte Count 2.34 X10^3/uL (0.83-4.51); Absolute Neutrophil Count 3.7 X10^3/uL (2.0-7.7); Basophil# 0.04 X10^3/uL; Basophil% 0.6 % (0-1); Eosinophil# 0.07 X10^3/uL; Hematocrit 34.9 % (37-47); Hemoglobin 11.8 g/dL (12.0-15.0); Lymphocyte # 2.34 X10^3/ul (0.83-4.51); Lymphocyte % 33.4 % (19-41); Mean Corp Hgb Conc 33.8 g/dL (32-36); Mean Corpuscular Volume 88.8 fL (81-99); Mean Platelet Vol. 8.9 fl (6.2-12.0); Monocyte# 0.81 X10^3/uL; Monocyte% 11.6 % (0-10); NRBC Flagged by Analyzer 0 % (0-5); Neutrophil # 3.73 X10^3/uL (2.7-7.7); Neutrophil % 53.1 % (47-70); Platelet Count 196 K/mm3 (150-450); RBC Distribution Width CV 12.8 % (11.6-14.6); RBC Distribution Width SD 41.8 fl (35.1-43.9); Red Blood Count 3.93 M/mm3 (4.2-5.4)
[2024-12-28 20:49] LABS: Anion Gap 12 (5-15); BUN 10 mg/dL (4-19); BUN/Creat Ratio 12.6 RATIO (10-20); Calcium,Total 9.7 mg/dL (7.6-11.0); Carbon Dioxide 24.3 mmol/L (21.0-32.0); Chloride 105 mmol/L (98-108); Creatinine, Serum 0.82 mg/dL (0.70-1.20); EST Glomerular Filtration Rate 84 (>60); Estimated Creatinine Clearance 105.84 ml/min (50-250); Glucose 163 mg/dL (70-99); Potassium 3.8 mmol/L (3.3-5.1); Sodium Level 141 mmol/L (133-145)
[2024-12-28 20:58] LABS: Red Blood Cells-Urine 0 SEEN /hpf (0-5)
[2024-12-28 21:01] LABS: Color, Urine Yellow (Yellow); Glucose, Dipstick Normal (Normal); Ketone-Dipstick Negative (Negative); Leukocyte Esterase-Dipstick Negative /ul (Negative); Nitrite-Dipstick Negative (Negative); Occult Blood-Urine Negative /ul (Negative); Protein-Dipstick 15 mg/dl (Negative); Urine Bilirubin Dipstick Negative (Negative); Urine Clarity Clear (Clear); Urine Urobilinogen Normal (Normal)
[2024-12-28 21:26] VITALS: BP 152/71; PULSE 81; RESP 15; O2SAT 97
[2024-12-28 21:27] LABS: Amorphous Sediment 1+; Bacteria 2+ /hpf (None Seen); Mucous, Urine 1+ /hpf (<or=2+); Squamous Epithelial Cells - UA 0-5 SEEN /hpf (5-10); White Blood Cells 0-5 SEEN /hpf (0-5)
[2024-12-28 21:51] VITALS: BP 152/71; PULSE 81; RESP 15; TEMP 36.1; O2SAT 97
== END 2024-12-28 21:55 | disposition home or self-care (01) ==
PROVIDERS: Emergency Provider Emergency Medicine; PCP Internal Medicine; Visit Provider Emergency Medicine
DX: K92.2 Gastrointestinal hemorrhage, unspecified (principal); Z90.710 Acquired absence of both cervix and uterus; R10.9 Unspecified abdominal pain; L93.2 Other local lupus erythematosus; Z79.899 Other long term (current) drug therapy; Z90.49 Acquired absence of other specified parts of digestive tract
CPT/HCPCS: 74177; 80048; 81001; 85025; 99283; Q9967; A4216

== ENCOUNTER 2025-01-20 09:04 | Day surgery (SDC) | payer MEDICARE, MEDICAID, SELFPAY ==
--- NOTE | 2025-01-19 11:58 | PAT.ANE_ITS ---
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 When Was Last Pacemaker Check QUESTION #4 FULL TEXT: You/Your Family Experience fever (hyperthermia) with Anesthesia Last Oral Intake Last Oral intake: Last Oral Intake NPO since Meds taken in AM with sips of water? Meds patient instructed to take am of surgery PONV PONV - survey research teacher: PONV - survey research teacher Female Yes 01/17/25 17:14 HX of Motion Sickness No 01/17/25 17:14 HX of N/V After Surgery No 01/17/25 17:14 Non-Smoker Yes 01/17/25 17:14 Duration of Surgery greater No 01/17/25 17:14 than 60 minutes Number of Risk Factors 2 01/17/25 17:14 PONV Score Moderate Risk 01/17/25 17:14 Height & Weight Height & Weight: Anesthesia: Height & Weight Height 5 ft 4 in 06/14/20 00:13 Respiratory Assessment Respiratory Assessment - survey research teacher: Respiratory Tract Infection Hx - survey research teacher Hx Respiratory Tract Infection No 01/17/25 17:14 STOP Sleep Apnea STOP Sleep Apnea - survey research teacher: STOP Sleep Apnea - survey research teacher Hx Hypertension Yes: PER PT, BP RUNS HIGH 01/17/25 17:14 OCC Hx Sleep Apnea Yes 01/17/25 17:14 CPAP Yes 01/17/25 17:14 BIPAP No 01/17/25 17:14 Do you snore loudly (louder than talking or can be heard Do you often feel tired/ fatigued/ sleepy during daytime? Has anyone observed you stop breathing during sleep? STOP Results Positive 01/17/25 17:14 QUESTION #5 FULL TEXT : Do you snore loudly (louder than talking or can be heard through closed doors)? 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 Specify any problems Hx of Preganancy in last 3 No 01/17/25 17:14 Months Nurse Filling Out Transfusion MGRIFFITH 01/17/25 17:14 & Questions: Date: 01/17/25 01/17/25 17:14 Time: 17:15 01/17/25 17:14 Patient unable to answer at this time (ie. confused, unrespo /Reproduction History /Reproductive History - survey research teacher: /Reproductive Hx- survey research teacher Hx Now No 01/17/25 17:14 Gestational Age (in weeks): EDC: Hx Hx Para Hx Section SAB No 01/17/25 17:14 REPLACED BY [facility] Medical History (Updated 01/17/25 @ 17:29 by Cammie Ardon) Difficult intravenous access Autism Anxiety Diabetes Excessive bleeding Fatty liver Migraine headache Injury of head and neck Blackout Dietary restriction History of GI bleed History of IBS Gastric reflux On home oxygen therapy Sleep apnea CPAP (continuous positive airway pressure) dependence Shortness of breath on exertion Hypertension History of edema History of echocardiogram History of Holter monitoring Cardiology follow-up encounter History of stress test History of irregular heartbeat Ovarian remnant syndrome Ventral hernia Lupus Home Medications ?Medication ?Instructions ?Recorded ?Last Taken ?Type albuterol sulfate 2.5 mg/3 mL 2.5 mg inhalation Q4H MO N PRN 12/31/13 04/01/16 History (0.083 %) solution for nebulization Shortness Of Breat h albuterol sulfate 90 mcg/actuation 2 puff inhalation Q 4H PRN PRN 12/31/13 04/02/16 History aerosol inhaler Shortness Of Breath fluticasone propionate 230 2 puff inhalation BID 12/3104/02/16 History mcg-salmeterol 21 mcg/actuation HFA inhaler hydroxychloroquine 200 mg tablet 200 mg PO BID 4 04/02/16 History torsemide 20 mg tablet 20 mg PO DAILY PRN PRN Swell ing 05/10/14 03/31/16 History metoprolol succinate 100 mg 50 mg PO BID 08/16/1503/09 History tablet,extended release 24 hr potassium chloride 20 mEq 20 meq PO DAILY PRN MEDICATI ON 09/29/15 03/31/16 History tablet,extended release(part/cryst) triamcinolone acetonide 0.1 % 1 applic topical BID PRN Itching 01/22/17 Unknown History topical cream hydrocodone-acetaminophen 5-325mg 1 tab PO Q6H PRN PRN Pain #10 tabs 09/23/17 Unknown Rx 5mg-325mg bupropion HCl 300 mg 24 hr tablet, 150 mg PO DAILY 03/27 Unknown History extended release ipratropium 0.5 mg-albuterol 3 mg 3 ml inhalation BID 06/14/20 Unknown History (2.5 mg base)/3 mL nebulization soln ondansetron 4 mg disintegrating 4 mg PO Q8H PRN PRN Na usea #10 tabs 06/14/20 Unknown Rx tablet famotidine 20 mg tablet 20 mg PO QDAY #30 tabs 11/17 Unknown Rx losartan 25 mg tablet (Cozaar) 25 mg PO QDAY 11/17/24 Unknown History omeprazole 40 mg capsule,delayed 40 mg PO QDAY #60 cap s 11/17/24 Unknown Rx release Allergy/AdvReac Type Severity Reaction Status Date / Time cefuroxime axetil (From Allergy Hives Verified 01/17/25 17:08 Ceftin) furosemide (From Lasix) Allergy Other Verified 01/17/25 17:08 hydralazine Allergy Angioedema Verified 01/17/25 17:08 latex Allergy Hives Verified 01/17/25 17:08 oxycodone HCl (From Percocet) AdvReac Nausea Verified 01/17/25 17:08 propoxyphene napsylate (From AdvReac Other Verified 01/17/25 17:08 Darvocet-N) Family History Mother Diabetes Hypertension Father Diabetes CVA (cerebral vascular accident) Hypertension Aunt Liver cancer Grandmother Colon cancer Uncle Throat cancer Sister Thyroid cancer Surgical History (Updated 01/17/25 @ 17:29 by Cammie Ardon) History of cardiac catheterization History of wisdom tooth extraction History of esophagogastroduodenoscopy (EGD) History of colonoscopy H/O oophorectomy S/P cholecystectomy H/O total hysterectomy S/P foot surgery, left Social History Smoking Status: Never smoker alcohol intake: never substance use type: does not use caffeine: No what type of physical activity do you participate in: none seatbelt use: always do you feel safe at home: Yes additional social history: - Not employed- Disabled Audit: Pertinent Findings Pertinent Findings EKG Perinent findings: 06/14/2020. Sinus tachycardia [address] and T wave abnormality. Stress test pertinent findings: 05/11/2014. Normal perfusion stress test. Preserved EF 76%. Consult pertinent findings: Cardiology [facility] October 26, 2024. History of syncope and collapse. Hypertension. Lupus. Syncope likely related to vagal response. Extensive cardiac workup including cardiac catheterization echo and stress test showed no significant abnormalities. 14-day alarm security or surveillance monitor revealed minimal PVCs. Only 6 episodes of tachycardia. Longest of 11 beats. Recommendation Anesthesia Recommendation Anesthesia recommendation: OPTIMIZED for anesthesia
[2025-01-20] VITALS (8 sets, daily range): BP systolic 113–148; BP diastolic 58–76; PULSE 62–74; RESP 16–18; TEMP 36.1; O2SAT 94–97; BMI 49.9
[2025-01-20] MEDS: Lactated Ringers 1,000 ML 15 ML IV (09:42)
--- NOTE | 2025-01-20 10:03 | PRE.ANES_ITS ---
ASA Classification* ASA Classification ASA Classification: 3 (Morbid Obesity) Assessment & Plan Anesthesia* Anesthesia Assessment Anesthesia Assessment: Discussed sedation and/or anesthesia options, risks, benefits, and alternatives with patient/parents/legal guardian/POA. Questions invited. The patient/parents/legal guardian/POA seems to understand and agrees to proceed with anesthesia plan. Reviewed the physical assessment, medical history, allergy history and patient home medications list prior to surgery/procedure/anesthetic and documented any changes. Performed airway and anesthesia risk assessments. Anesthesia Type Anesthesia Type: MAC History Source History Obtained from:: Patient and Chart Anesthesia Focused Assessment* Temperature: 97.0 F Pulse Rate: 68 Blood Pressure: 148/76 Respiratory Rate: 18 Pulse Ox: 97 Oxygen Delivery Method: Room Air Airway Assessment Mouth opens: >3 cm Mallampati Score: II Focused Labs Anesthesia Preop lab: CBC WBC 7.0 K/mm3 (4.4-11.0) 12/28/24 20:12/28/24 RBC 3.93 M/mm3 (4.2-5.4) L 12/28/24 20:12/28/24 Hgb 11.8 g/dL (12.0-15.0) L 12/28/24 20: 5 Hct 34.9 % (37-47) L 12/28/24 20:12/28/24 Plt Count 196 K/mm3 (150-450) 12/28/24 20:01 12/28/24 CHEMISTRY Potassium 3.8 mmol/L (3.3-5.1) 12/28/24 20:01 12/28/24 Sodium 141 mmol/L (133-145) 12/28/24 20:01 12/28/24 BUN 10 mg/dL (4-19) 12/28/24 20:01 12/28/24 Creatinine 0.82 mg/dL (0.70-1.20) 12/28/24 20:12/28/24 Glucose 163 mg/dL (70-99) H 12/28/24 20:01 12/28/24 TSH 1.86 uIU/mL (0.358-3.74) 05/10/14 20:33 COAG PT 12.4 SECONDS (11.7-14.9) 10/22/15 21:42 Urine Test Negative Negative 10/05/15 06:15 10/05/15 Pre-Assessment Diagnosis/Proposed Procedure Planned Operative Procedure(s): EGD Anesthesia History 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 When Was Last Pacemaker Check QUESTION #4 FULL TEXT: You/Your Family Experience fever (hyperthermia) with Anesthesia Last Oral Intake Last Oral intake: Last Oral Intake NPO since 07:00 01/20/25 09:36 Meds taken in AM with sips of Yes 01/20/25 09:36 water? Meds patient instructed to see medlist 01/20/25 09:36 take am of surgery PONV PONV - senior sales director: PONV - senior sales director Female Yes 01/17/25 17:14 HX of Motion Sickness No 01/17/25 17:14 HX of N/V After Surgery No 01/17/25 17:14 Non-Smoker Yes 01/17/25 17:14 Duration of Surgery greater No 01/17/25 17:14 than 60 minutes Number of Risk Factors 2 01/17/25 17:14 PONV Score Moderate Risk 01/17/25 17:14 Height & Weight Height & Weight: Anesthesia: Height & Weight Height 5 ft 4 in 01/20/25 09:36 Weight: 132 kg 01/20/25 09:36 Body Mass Index (BMI) 49.9 01/20/25 09:36 Respiratory Assessment Respiratory Assessment - senior sales director: Respiratory Tract Infection Hx - senior sales director Hx Respiratory Tract Infection No 01/17/25 17:14 STOP Sleep Apnea STOP Sleep Apnea - senior sales director: STOP Sleep Apnea - senior sales director Hx Hypertension Yes: PER PT, BP RUNS HIGH 01/17/25 17:14 OCC Hx Sleep Apnea Yes 01/17/25 17:14 CPAP Yes 01/17/25 17:14 BIPAP No 01/17/25 17:14 Do you snore loudly (louder than talking or can be heard Do you often feel tired/ fatigued/ sleepy during daytime? Has anyone observed you stop breathing during sleep? STOP Results Positive 01/17/25 17:14 QUESTION #5 FULL TEXT : Do you snore loudly (louder than talking or can be heard through closed doors)? 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 Specify any problems Hx of Preganancy in last 3 No 01/17/25 17:14 Months Nurse Filling Out Transfusion MGRIFFITH 01/17/25 17:14 & Questions: Date: 01/17/25 01/17/25 17:14 Time: 17:15 01/17/25 17:14 Patient unable to answer at this time (ie. confused, unrespo /Reproduction History /Reproductive History - senior sales director: /Reproductive Hx- senior sales director Hx Now No 01/17/25 17:14 Gestational Age (in weeks): EDC: Hx Hx Para Hx Section SAB No 01/17/25 17:14 Active Medications Active Medications: Current Medications Generic Name Dose Route Start Last Admin Trade Name Freq PRN Reason Stop Dose Admin Lactated Ringer's 1,000 mls @ 15 mls/hr 01/20/25 09:15 01/20/25 09:42 IV 15 mls/hr .Q48H SAMI Administration PFSH Medical History Difficult intravenous access Autism Anxiety Diabetes Excessive bleeding Fatty liver Migraine headache Injury of head and neck Blackout Dietary restriction History of GI bleed History of IBS Gastric reflux On home oxygen therapy Sleep apnea CPAP (continuous positive airway pressure) dependence Shortness of breath on exertion Hypertension History of edema History of echocardiogram History of Holter monitoring Cardiology follow-up encounter History of stress test History of irregular heartbeat Ovarian remnant syndrome Ventral hernia Lupus Home Medications ?Medication ?Instructions ?Recorded ?Last Taken ?Type albuterol sulfate 2.5 mg/3 mL 2.5 mg inhalation Q4H NH N PRN 12/31/13 04/01/16 History (0.083 %) solution for nebulization Shortness Of Breat h albuterol sulfate 90 mcg/actuation 2 puff inhalation Q 4H PRN PRN 12/31/13 04/02/16 History aerosol inhaler Shortness Of Breath fluticasone propionate 230 2 puff inhalation BID 12/3104/02/16 History mcg-salmeterol 21 mcg/actuation HFA inhaler hydroxychloroquine 200 mg tablet 200 mg PO BID 4 04/02/16 History torsemide 20 mg tablet 20 mg PO DAILY PRN PRN Swell ing 05/10/14 03/31/16 History metoprolol succinate 100 mg 50 mg PO BID 08/16/1501/06 History tablet,extended release 24 hr potassium chloride 20 mEq 20 meq PO DAILY PRN MEDICATI ON 09/29/15 03/31/16 History tablet,extended release(part/cryst) triamcinolone acetonide 0.1 % 1 applic topical BID PRN Itching 01/22/17 Unknown History topical cream hydrocodone-acetaminophen 5-325mg 1 tab PO Q6H PRN PRN Pain #10 tabs 09/23/17 Unknown Rx 5mg-325mg bupropion HCl 300 mg 24 hr tablet, 150 mg PO DAILY 03/27 Unknown History extended release ipratropium 0.5 mg-albuterol 3 mg 3 ml inhalation BID 06/14/20 Unknown History (2.5 mg base)/3 mL nebulization soln ondansetron 4 mg disintegrating 4 mg PO Q8H PRN PRN Na usea #10 tabs 06/14/20 Unknown Rx tablet famotidine 20 mg tablet 20 mg PO QDAY #30 tabs 03/12 /25 Unknown Rx losartan 25 mg tablet (Cozaar) 25 mg PO QDAY 11/17/24 01/20/25 History omeprazole 40 mg capsule,delayed 40 mg PO QDAY #60 cap s 11/17/24 Unknown Rx release Allergy/AdvReac Type Severity Reaction Status Date / Time cefuroxime axetil (From Allergy Hives Verified 01/20/25 09:27 Ceftin) furosemide (From Lasix) Allergy Other Verified 01/20/25 09:27 hydralazine Allergy Angioedema Verified 01/20/25 09:27 latex Allergy Hives Verified 01/20/25 09:27 oxycodone HCl (From Percocet) AdvReac Nausea Verified 01/20/25 09:27 propoxyphene napsylate (From AdvReac Other Verified 01/20/25 09:27 Darvocet-N) Family History Mother Diabetes Hypertension Father Diabetes CVA (cerebral vascular accident) Hypertension Aunt Liver cancer Grandmother Colon cancer Uncle Throat cancer Sister Thyroid cancer Surgical History History of cardiac catheterization History of wisdom tooth extraction History of esophagogastroduodenoscopy (EGD) History of colonoscopy H/O oophorectomy S/P cholecystectomy H/O total hysterectomy S/P foot surgery, left Social History Smoking Status: Never smoker alcohol intake: never substance use type: does not use caffeine: No what type of physical activity do you participate in: none seatbelt use: always do you feel safe at home: Yes additional social history: - Not employed- Disabled Addt'l Information Additional Findings: Patient took pre-op albuteral by request of this provider. Metoprolol taken this morning. Review of Systems (Anesthesia) ROS Narrative System reviewed and no additional complaints, except as documented. Physical Exam Const alert and oriented x3 HEENT dentition normal Resp normal respiratory effort and normal air movement Auscultation: clear to auscultation bilaterally Cardio regular rate and regular rhythm Neuro oriented x3 and moves all extremities
[2025-01-20 10:28] LABS: Bedside Glucose 150 mg/dL (74-106)
--- NOTE | 2025-01-20 10:30 | EGD_PTH ---
PATIENT: MIKA VELAZQUEZ LOC: EN U#:[id number] AGE/SX: 54/F ROOM: RE01/20/[address]: Dr. Dudley Huston DO : 1970 BED: DIS: 01/20/2025 SPEC #: [id number] RECD: 01/20/25 13:32 STATUS: ARA REAlyssa #: [id number] JERONIMO: 01/20/25 10:[address]: Dudley Huston DEPT: SURGICAL PATHOLOGY RECD BY: Talib Gordon ENTERED: 01/20/25 15:10 SP TYPE: EGD BIOPSY JIA DR: Dr. Aditi Corbett MD Tissues: A - Esophagus, NOS B - Gastric mucous membrane C - Ileum, NOS D - COLON BIOPSY Procedures: Surgery Specimen Level IV HEADER OPERATION: Colonoscopy with biopsy, EGD with biopsy PRE-OP DIAGNOSIS: Difficulty swallowing, nausea/vomiting, loose stools, GERD, abdominal pain TISSUE SUBMITTED: A- Distal esophagus biopsy, B- Gastric body biopsy, C- Terminal ileum biopsy,D- Random colon biopsy MICROSCOPIC DIAGNOSIS A. Esophagus, distal, biopsy: Columnar mucosa negative for goblet cell metaplasia. Squamous mucosa negative for eosinophils. B. Stomach, gastric body, biopsy: Oxyntic mucosa with mild chronic inflammation. Negative for Helicobacter-like organisms (H&E). C. Small bowel, terminal ileum, biopsy: Normal villous architecture with mucosal lymphoid aggregate, favor reactive. D. Colon, random, biopsy: No specific pathologic change. MICROSCOPIC DESCRIPTION Slides are reviewed. GROSS DESCRIPTION A. Received in formalin in a container labeled with the patient's name, date of , and distal esophagus biopsy are 2 aceves-pink fragments of mucosal tissue each measuring 0.4 x 0.2 x 0.2 cm. Submitted in toto in A1. B. Received in formalin in a container labeled with the patient's name, date of , and gastric body biopsy are multiple aceves-pink fragments of mucosal tissue measuring 0.7 x 0.3 x 0.2 cm in aggregate. Submitted in toto in B1. C. Received in formalin in a container labeled with the patient's name, date of , and terminal ileum biopsy are 2 aceves-pink fragments of mucosal tissue measuring 0.4 x 0.3 x 0.2 cm and 0.5 x 0.2 x 0.2 cm. Submitted in toto in C1. D. Received in formalin in a container labeled with the patient's name, date of , and random colon biopsy are multiple aceves-pink fragments of mucosal tissue measuring 1.7 x 0.8 x 0.3 cm in aggregate. Submitted in toto in D1. [facility] 01-20-2025 CPT:[id number]
--- NOTE | 2025-01-20 10:38 | HP.PCM_ITS ---
HPI - General General Date of Admission: 01/20/25 Date of Service: 01/20/25 Chief Complaint: Lower GI bleeding HPI Narrative MIKA VELAZQUEZ, is a 54 F who presents for the evaluation of lower GI bleeding [facility] established Aug 2024 with constipation and abd pain. Soft bm that are difficult to pass. Last colonoscopy and EGD in February 2024 with findings of gastritis. Started on Linzess Sitz marker; not completed Last OV 11.17.24 pt has been having n/v and diarrhea for about 24 hours after eating wendys. She has had worsening heartburn, epigastric pain and difficulty swallowing. Discontinue Linzess. Increase PPI and ass famotidine. Start fiber. Scheduled for EGD. Stool 11.18.24; c dif negative Sitz marker; not completed [facility] ED 12.28.24 with abd pain and blood in her stool. Work up unremarkable. CT abd/pelvis 12.28.24IMPRESSION: 1. No acute process. 2. Hepatic steatosis. 3. Fat containing ventral hernia.; OV 01.03.25 Patient was seen in the ED after passing blood clots after one day of abd pain. Stool was dark but not black. She felt like she had a UTI. Since then she has not had any more blood clots but has had some streaking on the toilet paper. [facility] Medical History Difficult intravenous access Autism Anxiety Diabetes Excessive bleeding Fatty liver Migraine headache Injury of head and neck Blackout Dietary restriction History of GI bleed History of IBS Gastric reflux On home oxygen therapy Sleep apnea CPAP (continuous positive airway pressure) dependence Shortness of breath on exertion Hypertension History of edema History of echocardiogram History of Holter monitoring Cardiology follow-up encounter History of stress test History of irregular heartbeat Ovarian remnant syndrome Ventral hernia Lupus Home Medications ?Medication ?Instructions ?Recorded ?Last Taken ?Type albuterol sulfate 2.5 mg/3 mL 2.5 mg inhalation Q4H SD N PRN 12/31/13 04/01/16 History (0.083 %) solution for nebulization Shortness Of Breat h albuterol sulfate 90 mcg/actuation 2 puff inhalation Q 4H PRN PRN 12/31/13 04/02/16 History aerosol inhaler Shortness Of Breath fluticasone propionate 230 2 puff inhalation BID 12/3104/02/16 History mcg-salmeterol 21 mcg/actuation HFA inhaler hydroxychloroquine 200 mg tablet 200 mg PO BID 4 04/02/16 History torsemide 20 mg tablet 20 mg PO DAILY PRN PRN Swell ing 05/10/14 03/31/16 History metoprolol succinate 100 mg 50 mg PO BID 08/16/1501/06 History tablet,extended release 24 hr potassium chloride 20 mEq 20 meq PO DAILY PRN MEDICATI ON 09/29/15 03/31/16 History tablet,extended release(part/cryst) triamcinolone acetonide 0.1 % 1 applic topical BID PRN Itching 01/22/17 Unknown History topical cream hydrocodone-acetaminophen 5-325mg 1 tab PO Q6H PRN PRN Pain #10 tabs 09/23/17 Unknown Rx 5mg-325mg bupropion HCl 300 mg 24 hr tablet, 150 mg PO DAILY 03/27 Unknown History extended release ipratropium 0.5 mg-albuterol 3 mg 3 ml inhalation BID 06/14/20 Unknown History (2.5 mg base)/3 mL nebulization soln ondansetron 4 mg disintegrating 4 mg PO Q8H PRN PRN Na usea #10 tabs 06/14/20 Unknown Rx tablet famotidine 20 mg tablet 20 mg PO QDAY #30 tabs 11/17 Unknown Rx losartan 25 mg tablet (Cozaar) 25 mg PO QDAY 11/17/24 01/20/25 History omeprazole 40 mg capsule,delayed 40 mg PO QDAY #60 cap s 11/17/24 Unknown Rx release Allergy/AdvReac Type Severity Reaction Status Date / Time cefuroxime axetil (From Allergy Hives Verified 01/20/25 09:27 Ceftin) furosemide (From Lasix) Allergy Other Verified 01/20/25 09:27 hydralazine Allergy Angioedema Verified 01/20/25 09:27 latex Allergy Hives Verified 01/20/25 09:27 oxycodone HCl (From Percocet) AdvReac Nausea Verified 01/20/25 09:27 propoxyphene napsylate (From AdvReac Other Verified 01/20/25 09:27 Darvocet-N) Family History Mother Diabetes Hypertension Father Diabetes CVA (cerebral vascular accident) Hypertension Aunt Liver cancer Grandmother Colon cancer Uncle Throat cancer Sister Thyroid cancer Surgical History History of cardiac catheterization History of wisdom tooth extraction History of esophagogastroduodenoscopy (EGD) History of colonoscopy H/O oophorectomy S/P cholecystectomy H/O total hysterectomy S/P foot surgery, left Social History Smoking Status: Never smoker alcohol intake: never substance use type: does not use caffeine: No what type of physical activity do you participate in: none seatbelt use: always do you feel safe at home: Yes additional social history: - Not employed- Disabled ROS Constitutional Constitutional: Denies fatigue, fever(s), poor appetite, weight gain or weight loss Gastrointestinal Gastrointestinal: Denies belching, bloating, change in bowel habits, change in stool character, chewing difficulty, coffee ground emesis, constipation, cramping, diarrhea, dyspepsia, dysphagia, early satiety, excessive flatus, fecal incontinence, heartburn, hematemesis, hematochezia, hemorrhoids, loose stools, melena, nausea, odynophagia, rectal bleeding, tenesmus, vomiting or weight changes Vital Signs Vital Signs Vital Signs: 01/20/25 09:36 01/20/25 09:36 01/20/25 10:08 Temperature 97.0 F L 97.0 F L Temperature Source Temporal Pulse Rate 68 68 Respiratory Rate 18 18 Respiratory Pattern Normal Blood Pressure 148/76 H 148/76 H Blood Pressure Mean 100 Blood Pressure Source Monitor Blood Pressure Position Semi-Fowlers Blood Pressure Location Left Forearm Pulse Ox 97 97 Oxygen Delivery Method Room Air Room Air Weight Weight: 291 lb 0.163 oz Body Mass Index (BMI) 49.9 Physical Exam Const alert, oriented x3, no apparent distress and healthy appearing General Appearance: cooperative GI normal to inspection, nondistended, normoactive bowel sounds, soft to palpation, non-tender and non-distended Percussion: normal to percussion Rectal Exam: deferred Results Lab / Micro Data Labs: Laboratory Results - last 24 hr 01/20/25 09:37: POC Glucose 150 H Assessment & Plan Assessment/Plan (1) Difficulty swallowing: (2) Nausea & vomiting: (3) Loose stools: (4) GERD (gastroesophageal reflux disease): PLAN: Assessment and Plan Assessment and Plan (1) Abdominal pain: Status: Acute Plan: This is a 54 yo female pe here today after [facility] ED visit for blood in her stool. Pt reports she had one day of lower quadrant pain followed by blood clots in her stool. ED work up unremarkable for acute processes. SHe is interested in getting a colonoscopy. SHe is already scheduled for an EGD in January 2025. We will add a colonoscopy on to this. -EGD already scheduled, colonoscopy added -Continue current medications -c/u after procedure (2) Acute lower gastrointestinal bleeding: Status: Acute
--- NOTE | 2025-01-20 12:00 | PCM.POST.ANE ---
Anesthesia: Postop Eval I Current Vital Signs Temperature: 97 F Pulse Rate: 74 Blood Pressure: 117/66 Respiratory Rate: 16 Pulse Ox: 97 Oxygen Delivery Method: Room Air Assessment Airway patent: Yes Spontaneous unlabored respirations: Yes Mental status: Awake and Calm nausea: No Vomiting: No Anesthesia Complication: No Fluid Hydration Crystalloid volume administer (ml): 600 Total IV fluid infused: 600 Progress Note Anesthesia document: Postop Eval 1 completed: Yes
--- NOTE | 2025-01-20 12:01 | OP.EGD_ITS ---
Patient Name: Laura Lr Procedure Date: 01/20/2025 11:21 AM Date of : 1970 Age: 54 Procedure: Upper GI endoscopy Indications: Epigastric abdominal pain, Functional Dyspepsia Providers: Dudley Huston DO Referring MD: Aditi Corbett Medicines: Monitored Anesthesia Care Patient Profile: This is a 54 year old female. Refer to note in patient chart for documentation of history and physical. Patient has symptoms of chronic abdominal cramping, chronic abdominal distention, acute epigastric abdominal pain, chronic dyspepsia and chronic heartburn. Complications: No immediate complications. Procedure: Pre-Anesthesia Assessment: - Prior to the procedure, a History and Physical was performed, and patient medications and allergies were reviewed. The patient is competent. The risks and benefits of the procedure and the sedation options and risks were discussed with the patient. All questions were answered and informed consent was obtained. Patient identification and proposed procedure were verified in the pre-procedure area. Mental Status Examination: alert and oriented. Airway Examination: normal oropharyngeal airway and neck mobility. Respiratory Examination: clear to auscultation. CV Examination: normal. Prophylactic Antibiotics: The patient does not require prophylactic antibiotics. Prior Anticoagulants: The patient has taken no anticoagulant or antiplatelet agents. ASA Grade Assessment: II - A patient with mild systemic disease. After reviewing the risks and benefits, the patient was deemed in satisfactory condition to undergo the procedure. The anesthesia plan was to use monitored anesthesia care (MAC). Immediately prior to administration of medications, the patient was re-assessed for adequacy to receive sedatives. The heart rate, respiratory rate, oxygen saturations, blood pressure, adequacy of pulmonary ventilation, and response to care were monitored throughout the procedure. The physical status of the patient was re-assessed after the procedure. After obtaining informed consent, the endoscope was passed under direct vision. Throughout the procedure, the patient's blood pressure, pulse, and oxygen saturations were monitored continuously. The was introduced through the mouth, and advanced to the third part of the duodenum. Small bowel enteroscopy was deemed necessary. The upper GI endoscopy was accomplished without difficulty. The patient tolerated the procedure well. Scope In: 11:34:03 AM Scope Out: 11:38:04 AM Total Procedure Duration Time 0 hours 4 minutes 1 second Findings: The Z-line was irregular and was found 40 cm from the incisors. Biopsies were taken with a cold forceps for histology. Verification of patient identification for the specimen was done. Estimated blood loss was minimal. Moderate portal hypertensive gastropathy was found in the entire examined stomach. Biopsies were taken with a cold forceps for histology. Verification of patient identification for the specimen was done. Estimated blood loss was minimal. Biopsies were taken with a cold forceps for Helicobacter pylori testing. Verification of patient identification for the specimen was done. Estimated blood loss was minimal. No gross lesions were noted in the entire examined duodenum. Impression: - Z-line irregular, 40 cm from the incisors. Biopsied. - Portal hypertensive gastropathy. Biopsied. - No gross lesions in the entire examined duodenum. Recommendation: - Discharge patient to home. - Resume previous diet. - Continue present medications. - Await pathology results. Procedure Code(s): --- Professional --- 02466, Small intestinal endoscopy, enteroscopy beyond second portion of duodenum, not including ileum; with biopsy, single or multiple CPT copyright 2021 [employer]. All rights reserved. The codes documented in this report are preliminary and upon baggage handler review may be revised to meet current compliance requirements. Dudley Huston DO 01/20/2025 12:01:09 PM This report has been signed electronically. Number of Addenda: 0 Note Initiated On: 01/20/2025 11:21 AM
--- NOTE | 2025-01-20 12:02 | OP.CCLET_ITS ---
01/20/2025 Aditi Corbett [address] [place] [address] Re : Upper GI endoscopy procedure for Laura Lr Dear Dr. Corbett This procedure was performed on January. My impressions and recommendations are as follows: Impressions : - Z-line irregular, 40 cm from the incisors. Biopsied. - Portal hypertensive gastropathy. Biopsied. - No gross lesions in the entire examined duodenum. Recommendations : - Discharge patient to home. - Resume previous diet. - Continue present medications. - Await pathology results. My findings are described in the full procedure note, which is enclosed. If I can be of further assistance, please feel free to contact me at . Sincerely, Dudley Huston, 01/20/2025 12:01:09 PM This report has been signed electronically.
--- NOTE | 2025-01-20 12:05 | OP.COLON_ITS ---
Patient Name: Laura Lr Procedure Date: 01/20/2025 11:38 AM Date of : 1970 Age: 54 Procedure: Colonoscopy Indications: Generalized abdominal pain, Chronic diarrhea Providers: Dudley Huston DO Referring MD: Aditi Corbett Medicines: Monitored Anesthesia Care Patient Profile: This is a 54 year old female. Refer to note in patient chart for documentation of history and physical. Patient has symptoms of chronic abdominal cramping, chronic abdominal distention, acute epigastric abdominal pain, chronic dyspepsia and chronic heartburn. Last Colonoscopy: none. The patient's first colonoscopy is today. Complications: No immediate complications. Procedure: Pre-Anesthesia Assessment: - Prior to the procedure, a History and Physical was performed, and patient medications and allergies were reviewed. The patient is competent. The risks and benefits of the procedure and the sedation options and risks were discussed with the patient. All questions were answered and informed consent was obtained. Patient identification and proposed procedure were verified in the pre-procedure area. Mental Status Examination: alert and oriented. Airway Examination: normal oropharyngeal airway and neck mobility. Respiratory Examination: clear to auscultation. CV Examination: normal. Prophylactic Antibiotics: The patient does not require prophylactic antibiotics. Prior Anticoagulants: The patient has taken no anticoagulant or antiplatelet agents. ASA Grade Assessment: II - A patient with mild systemic disease. After reviewing the risks and benefits, the patient was deemed in satisfactory condition to undergo the procedure. The anesthesia plan was to use monitored anesthesia care (MAC). Immediately prior to administration of medications, the patient was re-assessed for adequacy to receive sedatives. The heart rate, respiratory rate, oxygen saturations, blood pressure, adequacy of pulmonary ventilation, and response to care were monitored throughout the procedure. The physical status of the patient was re-assessed after the procedure. After I obtained informed consent, the scope was passed under direct vision. Throughout the procedure, the patient's blood pressure, pulse, and oxygen saturations were monitored continuously. The was introduced through the anus and advanced to the cecum, identified by appendiceal orifice and ileocecal valve. The colonoscopy was performed without difficulty. The patient tolerated the procedure well. The quality of the bowel preparation was good. The terminal ileum, ileocecal valve, appendiceal orifice, and rectum were photographed. Scope In: 11:40:20 AM Scope Withdrawal Time 0 hours 9 minutes 59 seconds Scope Out: 11:52:55 AM Total Procedure Duration Time 0 hours 12 minutes 35 seconds Findings: The perianal and digital rectal examinations were normal. An area of mildly congested mucosa was found in the entire colon. Biopsies were taken with a cold forceps for histology. Verification of patient identification for the specimen was done. Estimated blood loss was minimal. The terminal ileum appeared normal. Biopsies were taken with a cold forceps for histology. Verification of patient identification for the specimen was done. Estimated blood loss was minimal. The exam was otherwise without abnormality on direct and retroflexion views. Impression: - Congested mucosa in the entire examined colon. Biopsied. - The examined portion of the ileum was normal. Biopsied. - The examination was otherwise normal on direct and retroflexion views. Recommendation: - Discharge patient to home. - Resume previous diet. - Continue present medications. - Await pathology results. - Repeat colonoscopy in 5 years for surveillance. Procedure Code(s): --- Professional --- 46528, Colonoscopy, flexible; with biopsy, single or multiple CPT copyright 2021 [employer]. All rights reserved. The codes documented in this report are preliminary and upon delivery stock clerk review may be revised to meet current compliance requirements. Dudley Huston DO 01/20/2025 12:05:18 PM This report has been signed electronically. Number of Addenda: 0 Note Initiated On: 01/20/2025 11:38 AM
--- NOTE | 2025-01-20 12:06 | OP.CCLET_ITS ---
01/20/2025 Aditi Corbett [address] [place] [address] Re : Colonoscopy procedure for Laura Nancevan Dear Dr. Corbett This procedure was performed on January. My impressions and recommendations are as follows: Impressions : - Congested mucosa in the entire examined colon. Biopsied. - The examined portion of the ileum was normal. Biopsied. - The examination was otherwise normal on direct and retroflexion views. Recommendations : - Discharge patient to home. - Resume previous diet. - Continue present medications. - Await pathology results. - Repeat colonoscopy in 5 years for surveillance. My findings are described in the full procedure note, which is enclosed. If I can be of further assistance, please feel free to contact me at . Sincerely, Dudley Huston, 01/20/2025 12:05:18 PM This report has been signed electronically.
--- NOTE | 2025-01-20 12:29 | PCM.POSTANE2 ---
Anesthesia Postop Eval I Sum Postop Eval Completion status Anesthesia document: Postop Eval 1 completed: Yes Anesthesia Postop Eval I Summary Anesthesia Postop Eval I Summary: Anesthesia Postop Eval I: Assessment Summary Airway patent Yes 01/20/25 12:01 [email or web address] Spontaneous unlabored Yes 01/20/25 12:01 [email or web address] respirations Mental status Awake,Calm 01/20/25 12:01 [email or web address] nausea No 01/20/25 12:01 [email or web address] Vomiting No 01/20/25 12:01 [email or web address] Anesthesia Postop Eval I: Fluid Summary Crystalloid volume administer 600 01/20/25 12:01 [email or web address] (ml) Colloids volume administered ( ml) Blood Product volume administered (ml) Total IV fluid infused 600 01/20/25 12:01 [email or web address] Anesthesia Postop Eval I: Summary Notes Anesthesia Complication No 01/20/25 12:01 [email or web address] Anesthesia Complication Comment: Post-operative progress note Anesthesia: Postop Eval II Evaluation Mental status: Awake and Calm Pain Level: 0 nausea: No Vomiting: No Complications Anesthesia Complication: No
== END 2025-01-20 12:27 | disposition home or self-care (01) ==
LOC: EN 09:05 → AC 09:06
PROVIDERS: PCP Internal Medicine; Referring Provider Internal Medicine; Visit Provider Internal Medicine Gastroenterology
PROC: 0DJD8ZZ Inspection of Lower Intestinal Tract, Via Natural or Artificial Opening Endoscopic (ICD-10-PCS; CPT 45378; principal; 2025-01-20 10:25)
DX: K92.2 Gastrointestinal hemorrhage, unspecified (principal); K76.6 Portal hypertension; E11.9 Type 2 diabetes mellitus without complications; K21.9 Gastro-esophageal reflux disease without esophagitis; Z90.710 Acquired absence of both cervix and uterus; R13.10 Dysphagia, unspecified; R19.7 Diarrhea, unspecified; I10 Essential (primary) hypertension; G47.30 Sleep apnea, unspecified; Z99.89 Dependence on other enabling machines and devices; Z99.81 Dependence on supplemental oxygen; Z79.899 Other long term (current) drug therapy; Z90.49 Acquired absence of other specified parts of digestive tract; R11.2 Nausea with vomiting, unspecified; R10.30 Lower abdominal pain, unspecified; K22.89 Other specified disease of esophagus; K63.89 Other specified diseases of intestine
CPT/HCPCS: 45380; 43239; 82962; 88305; J2405

== ENCOUNTER → 2025-02-09 | Outpatient (CLI) | payer MEDICARE, MEDICAID, SELFPAY | END | disposition home or self-care (01) | LOC: LABSPEC 14:01 | PROVIDERS: PCP Internal Medicine; Referring Provider Student in an Organized Health Care Education/Training Program; Visit Provider Student in an Organized Health Care Education/Training Program | DX: R19.5 Other fecal abnormalities (principal); K58.9 Irritable bowel syndrome, unspecified; K76.0 Fatty (change of) liver, not elsewhere classified | CPT/HCPCS: 83993; 87177; 87209; 87329 ==

== ENCOUNTER → 2025-02-18 | Outpatient (CLI) | payer MEDICARE, MEDICAID, SELFPAY ==
--- NOTE | 2025-02-18 08:45 | US_ITS ---
PROCEDURE: ABD LIMITED W/ ELASTOGRAPHY REASON FOR EXAM: FATTY LIVER COMPARISON: None. TECHNIQUE: Right upper quadrant abdominal ultrasound. Tre ElastQ Imaging shear wave elastography for non-invasive assessment of liver tissue stiffness. Tre EPIQ Elite. FINDINGS: LIVER: Size: Enlarged (hepatomegaly) Length: 22.2 cm Echotexture: Diffusely echogenic suggesting fatty infiltration Contour: Normal Lesions: None Elastography: EQI Med: 7.8 kPa EQI Med Won: 1.6 m/s IQR/Med: 12th %* GALLBLADDER: Surgically absent. COMMON BILE DUCT: Normal measuring 4.9 mm . PANCREAS: Normal Visualized portions of the right kidney are unremarkable. No right upper quadrant ascites. US/ABD Limited w/ Elastography IMPRESSION: [id number] fibrosis. Reference Values: SRU <1.37 m/s (5.7kPa): No to mild fibrosis 1.37 m/s - 2.2 m/s: Moderate to severe fibrosis >2.2 m/s (15kPa): Significant fibrosis / cirrhosis METAVIR Score F2 or higher: 1.34 m/s (5.7kPa) F3 or higher: 1.55 m/s (7.3kPa) F4: 1.80 m/s (10kPa) * If the IQR/Med is >30%, the variance in the measurements is a large and the a ccuracy of the measurement may be in question. Reading Location: [id number]
== END | disposition home or self-care (01) ==
LOC: US 08:39
PROVIDERS: PCP Internal Medicine; Referring Provider Student in an Organized Health Care Education/Training Program; Visit Provider Student in an Organized Health Care Education/Training Program
DX: K76.0 Fatty (change of) liver, not elsewhere classified (principal)
CPT/HCPCS: 76705; 76981